=== PATIENT | female | born 1980 | race Caucasian/White ===

== ENCOUNTER 2017-02-11 01:55 | Emergency (ER) | payer OTHER | END 2017-02-11 03:57 | disposition home or self-care (01) | LOC: ER 01:55 | DX: R07.9 Chest pain, unspecified (principal); R42 Dizziness and giddiness; R53.1 Weakness; F17.210 Nicotine dependence, cigarettes, uncomplicated; Z87.442 Personal history of urinary calculi; Z98.51 Tubal ligation status | CPT/HCPCS: 36415 ==